=== PATIENT | female | born 1975 | race African-American/Black ===

== ENCOUNTER → 2020-03-21 | Outpatient (CLI) | payer BC, OTHER ==
[~2020-03-21] MED LIST: HAIR, SKIN & N1 EAC2 PO; NORCO 5-325 TA1 EAC2 PO
== END ==
LOC: LAB 14:26
PROVIDERS: ATTEND Surgery
DX: Z01.812 Encounter for preprocedural laboratory examination (principal); Z20.828 Contact with and (suspected) exposure to other viral communicable diseases

== ENCOUNTER → 2020-03-26 | Day surgery (SDC) | payer BC, OTHER ==
[~2020-03-26] VITALS: Ht 160 cm; Wt 59.0 kg
--- NOTE | ~2020-03-26 | O ---
[facility] [place] [address] OPERATIVE REPORT Name: CLAUDINE GRIJALVA Room #: REG [facility] [place] [place] M.R.#: [id number] Admission: 03/26/20 Attend Phys: Myles Alaniz MD Discharge: Date of : 75 Report #: [id number] THIS REPORT FOR: cc: NORA - Family physician unknown FAM - Family physician unknown Myles Alaniz MD ~ DATE OF SERVICE: 03/26/[address] Myles Alaniz. PREOPERATIVE DIAGNOSIS: Ventral incisional incarcerated umbilical hernia. POSTOPERATIVE DIAGNOSIS: Ventral incisional incarcerated umbilical hernia. PROCEDURE: Repair of a ventral incisional incarcerated umbilical hernia. SURGEON: Myles Alaniz MD ANESTHESIA: Local IV sedation. DESCRIPTION OF PROCEDURE: The patient was brought to the operating room and placed on the operative table in the supine position. Sequential compression devices were in place for DVT prophylaxis. There was no indication for preoperative antibiotics. The patient underwent IV sedation. The abdomen was then prepped and draped in a sterile fashion. Skin and subcutaneous tissue were then infiltrated with 0.5% Marcaine and 1% Xylocaine with epinephrine. A transverse supraumbilical skin incision was performed through the previous incision scar using a #15 scalpel blade. Hemostasis obtained using electrocautery. Dissection was carried down through the subcutaneous tissue to the incarcerated hernia sac, which was dissected free and some incarcerated omentum was reduced back into the abdomen and some adhesions around the fascial hernia defect were lysed using the electrocautery and Metzenbaum scissors and reduced back into the abdomen. After completing the dissection, the incarcerated incisional hernia was then repaired using interrupted [id number] 0 Prolene sutures. The umbilicus was then tacked to the fascia using a simple interrupted 2-0 chromic suture. Deep and superficial subcutaneous tissues were then reapproximated using simple interrupted 2-0 chromic sutures and the skin then closed with a running 4-0 subcuticular Vicryl stitch. The wound was then dressed with Dermabond, Telfa, 4 x 4 gauze, sponge and tape. The patient was then awakened from the IV sedation, taken to recovery room in good condition. Estimated blood loss was approximately 5 mL and the [facility] [address] [place] [address] OPERATIVE REPORT Name: MIGUEL GRIJALVAEFAH Room #: REG [facility].#: [id number] Admission: 03/26/20 Attend Phys: Myles Alaniz MD Discharge: Date of : 75 Report #: [id number] patient tolerated the procedure well. All sponge, lap and instrument counts were correct x 2. By: [id number] Myles Alaniz MD /nt
[2020-03-26 09:00] VITALS: BP 133/91
[2020-03-26 11:13] VITALS: BP 133/91
== END | disposition home or self-care (01) ==
LOC: OR
PROVIDERS: ATTEND Surgery
DX: K43.0 Incisional hernia with obstruction, without gangrene (principal); Z98.890 Other specified postprocedural states; Z79.899 Other long term (current) drug therapy; Z87.891 Personal history of nicotine dependence; Z88.8 Allergy status to other drugs, medicaments and biological substances
CPT/HCPCS: 50010; 50101; 50386; 50417; 54118; 56524; 56526; 62110; 62850; 70005